=== PATIENT | male | born 1975 | race African-American/Black ===

== ENCOUNTER → 2018-07-21 | Outpatient (CLI) | payer OTHER ==
--- NOTE | 2018-07-21 16:59 | RAD ---
Examination: Ultrasound abdomen limited HISTORY: History of right lower quadrant pain for 10 months COMPARISON: None available Findings/ impression: A small right inguinal hernia is identified with the neck of the hernia measuring about 9.9 mm. Electronically signed by: German Posada MD (07/21/2018 4:57 PM) [place] [id number]
== END | disposition home or self-care (01) ==
LOC: US 13:48
PROVIDERS: ATTEND Registered Nurse
DX: K40.90 Unilateral inguinal hernia, without obstruction or gangrene, not specified as recurrent (principal)
CPT/HCPCS: 76705

== ENCOUNTER → 2019-10-12 | Outpatient (CLI) | payer OTHER ==
--- NOTE | 2019-10-12 08:37 | RAD ---
Sonography of the right groin Clinical indications: Right groin lump. COMPARISON: July 21, 2018. FINDINGS: High-resolution sonography of the area of clinical concern of the right groin was formed. There is a small right inguinal hernia present here. The abdominal wall defect measures 11 mm in greatest dimension. There is an increase in size of the hernia with movement of fatty tissue with Valsalva maneuver. The hernia sac measures about 32 mm in greatest dimension. IMPRESSION: Persistent right inguinal hernia containing fatty tissue. Electronically signed by: Brenton Bear MD (10/12/2019 8:34 AM) [id number]
== END ==
LOC: US 07:44
PROVIDERS: ATTEND Preventive Medicine Occupational Medicine
DX: K40.30 Unilateral inguinal hernia, with obstruction, without gangrene, not specified as recurrent (principal)
CPT/HCPCS: 76881